=== PATIENT | male | born 1945 | race Caucasian/White ===

== ENCOUNTER → 2018-01-25 | Outpatient (CLI) | payer OTHER ==
[2018-01-25 08:20] LABS: BASOPHILS % (AUTO) 0.8 % (0.0-5.0); EOSINOPHILS % (AUTO) 1.9 % (0.0-8.0); LYMPHOCYTES % (AUTO) 26.4 % (21.0-51.0); MEAN CORPUSCULAR HEMOGLOBIN 30.7 pg (27.0-33.0); MEAN CORPUSCULAR VOLUME 90.5 fL (79-99); MONOCYTES % (AUTO) 8.2 % (3.0-13.0); NEUTROPHILS % (AUTO) 62.7 % (40.0-77.0); PLATELET COUNT (AUTO) 235 K/uL (130-400); RED BLOOD CELL COUNT(AUTO) 4.97 MIL/uL (4.50-6.20); RED CELL DISTRIBUTION WIDTH 12.5 % (11.0-15.5); WHITE BLOOD COUNT (AUTO) 5.4 K/uL (4.8-10.8)
[2018-01-25 08:30] LABS: HEMOGLOBIN A1C 7.6 % (4.0-6.0)
[2018-01-25 08:42] LABS: ALBUMIN 3.8 g/dL (3.5-5.0); BILIRUBIN,TOTAL 0.7 mg/dL (0.2-1.0); CREATININE 1.2 mg/dL (0.5-1.5); POTASSIUM 4.4 mmol/L (3.5-5.1); T4 (THYROXINE) 6.8 mcg/dL (4.7-13.3); THYROID STIMULATING HORMONE 4.03 uIU/mL (0.36-3.74); TOTAL PROTEIN, SERUM 7.1 g/dL (6.0-8.3)
[2018-01-25 08:53] LABS: B-TYPE NATRIURETIC PEPTIDE 22 pg/mL (0-100)
== END | disposition home or self-care (01) ==
LOC: RAH 07:08
PROVIDERS: ATTEND Internal Medicine Cardiovascular Disease
DX: N28.1 Cyst of kidney, acquired (principal); R97.20 Elevated prostate specific antigen [PSA]; R79.1 Abnormal coagulation profile
CPT/HCPCS: 36415; 76770; 80053; 80061; 82382; 83036; 83880; 84153; 84154; 84436; 84439; 84443; 84479; 84481; 84585; 85025; 93975

== ENCOUNTER 2018-08-03 10:15 | Observation (INO) | payer OTHER ==
[2018-08-03] VITALS (16 sets, daily range): BP systolic 67–161; BP diastolic 34–85
[~2018-08-03] VITALS: Ht 182.9 cm; Wt 100.7 kg
[2018-08-03 10:15] LABS: BASOPHILS % (AUTO) 0.7 % (0.0-5.0); EOSINOPHILS % (AUTO) 2.2 % (0.0-8.0); HEMATOCRIT 44.7 % (42-54); LYMPHOCYTES % (AUTO) 12.9 % (21.0-51.0); MEAN CORPUSCULAR HEMOGLOBIN 30.5 pg (27.0-33.0); MEAN CORPUSCULAR VOLUME 92.4 fL (79-99); MONOCYTES % (AUTO) 11.1 % (3.0-13.0); NEUTROPHILS % (AUTO) 73.1 % (40.0-77.0); NUCLEATED RED BLOOD CELLS 0.1 % (0.0-0.19); PLATELET COUNT (AUTO) 199 K/uL (130-400); RED BLOOD CELL COUNT(AUTO) 4.84 MIL/uL (4.50-6.20); RED CELL DISTRIBUTION WIDTH 13.3 % (11.0-15.5); WHITE BLOOD COUNT (AUTO) 9.8 K/uL (4.8-10.8)
[~2018-08-03 10:15] MED LIST: IOHEXOL-350 75 ML VIAL IV ONE
[2018-08-03 10:25] LABS: POTASSIUM 5.3 mmol/L (3.5-5.1)
[2018-08-03] MEDS ORDERED: IOHEXOL-350 75 ML VIAL IV ONE (10:36)
[2018-08-03] MEDS ORDERED: KETOROLAC TROMETHAMINE 15MG/ML ONE (11:04)
[2018-08-03 11:13] LABS: ERYTHROCYTE SEDIMENTATION RATE 6 MM/HR (0-20)
[2018-08-03] MEDS ORDERED: DEXAMETHASONE SOD PHOSPHATE 10MG/ML 1ML VIAL ONE (12:01)
[2018-08-03] MEDS ORDERED: MIDAZOLAM HCL 1 MG/ML 2ML VIAL ONE (12:01)
[2018-08-03] MEDS ORDERED: LIDOCAINE PF 2% 5ML ABBOJECT ONE (12:01)
[2018-08-03] MEDS ORDERED: ONDANSETRON HCL 4 MG/2 ML VIAL ONE (12:01)
[2018-08-03] MEDS ORDERED: PROPOFOL 10 MG/ML 20ML VIAL IV ONE ×2 (12:01→17:46)
[2018-08-03] MEDS ORDERED: FENTANYL CITRATE PF 50 MCG/1 ML 2ML VIAL ONE ×2 (12:02→18:56)
[2018-08-03] MEDS ORDERED: GLYCOPYRROLATE 1 MG/5 ML SYRINGE ONE (12:04)
[2018-08-03] MEDS ORDERED: ROCURONIUM 10MG/1ML SYR 10 MG/ML ML ONE (12:04)
[2018-08-03] MEDS ORDERED: SODIUM CHLORIDE 0.9% 1000ML 1,000 ML IV SCH (12:45)
[2018-08-03] MEDS ORDERED: KETOROLAC TROMETHAMINE 30MG/ML IV PRN (12:45)
[2018-08-03] MEDS: SODIUM CHLORIDE 0.9% 1000ML 1,000 ML IV SCH ×2 (14:17→20:09)
[2018-08-03 14:27] LABS: INR 0.94 (0.85-1.15); PARTIAL THROMBOPLASTIN TIME 27.8 SEC (26.3-35.5); PROTHROMBIN TIME 9.9 SEC (9.6-11.6)
[2018-08-03] MEDS: CEFTRIAXONE SODIUM 1 GM IVP SCH ×2 (16:15→18:35)
[2018-08-03] MEDS: INSULIN R PO SS1/2 SQ SCH ×2 (16:30→21:00)
[2018-08-03] MEDS ORDERED: LOSA25TA16 PO (16:57)
[2018-08-03] MEDS ORDERED: ASPI-1026 PO (16:57)
[2018-08-03] MEDS ORDERED: DOXA1TAB PO (16:57)
[2018-08-03] MEDS: LABETALOL HCL 5 MG/ML 20ML VIAL IV PRN ×2 (17:00→20:09)
[2018-08-03] MEDS ORDERED: IOHEXOL-350 50ML VIAL IV ONE (17:54)
[2018-08-03] MEDS ORDERED: METOCLOPRAMIDE 10 MG/2 ML VIAL ONE (17:56)
[2018-08-03] MEDS ORDERED: EPHEDRINE SULFATE 50 MG/ML AMPULE ONE (18:36)
[2018-08-03] MEDS ORDERED: OPIUM/BELLADONNA ALKALOIDS 1 EACH SUPP.RECT RC ONE (19:18)
[2018-08-03] MEDS ORDERED: MEPERIDINE-PF 25 MG/ML SYG ONE (19:28)
[2018-08-03] MEDS ORDERED: PROMETHAZINE HCL 25 MG/ML 1ML AMPULE IM ONE (19:29)
[2018-08-03] MEDS ORDERED: FAMOTIDINE/PF 20 MG/2 ML VIAL IV SCH (21:00)
[2018-08-03] MEDS ORDERED: HYDROCODONE/ACETAMINOPHEN 5/325 MG TAB ONE (21:02)
[2018-08-03] MEDS ORDERED: PHENAZOPYRIDINE HCL 200 MG TABLET ONE (21:11)
[2018-08-03] MEDS ORDERED: HYDROCODONE/ACETAMINOPHEN 5/325 MG TAB PO PRN ×2 (21:15)
[2018-08-03] MEDS ORDERED: OPIUM/BELLADONNA ALKALOIDS 1 EACH SUPP.RECT RC PRN (21:15)
[2018-08-03] MEDS ORDERED: MAGNESIUM HYDROXIDE 30 ML/UDCUP PO PRN (21:15)
[2018-08-03] MEDS ORDERED: ONDANSETRON HCL 4 MG/2 ML VIAL IVP PRN (21:15)
[2018-08-03] MEDS ORDERED: ZOLPIDEM TARTRATE 5 MG TAB PO PRN (21:15)
[2018-08-03] MEDS ORDERED: DOXA4TAB2 PO (22:30)
[2018-08-03] MEDS ORDERED: LOSA100T20 PO (22:30)
[2018-08-04] VITALS: BP 130/74
[2018-08-04 04:00] VITALS: BP 138/75
[2018-08-04] MEDS: INSULIN R PO SS1/2 SQ SCH (06:43)
[2018-08-04 07:39] VITALS: BP 139/76
[2018-08-04] MEDS ORDERED: PANTOPRAZOLE SODIUM 40 MG TABLET.DR PO SCH (09:00)
[2018-08-04] MEDS ORDERED: TAMSULOSIN HCL 0.4 MG CAP.ER.24H PO SCH (09:00)
[2018-08-04] MEDS ORDERED: CEFTRIAXONE SODIUM 1 GM IVP SCH (09:00)
[2018-08-04] MEDS ORDERED: DOCUSATE SODIUM 100 MG CAP PO SCH (09:00)
[2018-08-04] MEDS ORDERED: PHENAZOPYRIDINE HCL 200 MG TABLET PO SCH (09:00)
[2018-08-05] MEDS ORDERED: ENOXAPARIN SODIUM 40 MG/0.4 ML SYRINGE SQ SCH (09:00)
== END 2018-08-04 08:20 | disposition home or self-care (01) ==
LOC: EDH 10:15 → EDHIP 12:20 → 4AH 13:16
PROVIDERS: ADMIT Hospitalist; ATTEND Hospitalist
DX: N13.2 Hydronephrosis with renal and ureteral calculous obstruction (principal); I10 Essential (primary) hypertension; E11.9 Type 2 diabetes mellitus without complications; G89.29 Other chronic pain; N28.1 Cyst of kidney, acquired; N40.0 Benign prostatic hyperplasia without lower urinary tract symptoms; Z90.49 Acquired absence of other specified parts of digestive tract; Z91.14 Patient's other noncompliance with medication regimen; Z88.5 Allergy status to narcotic agent; E66.9 Obesity, unspecified; Z79.01 Long term (current) use of anticoagulants
CPT/HCPCS: 36415; 52332; 74178; 74420; 80051; 82565; 82948; 84153; 84154; 84520; 85025; 85610; 85651; 85730; 96374; 96375; 99285; A4218; A4344; A4358; A4930; C1758 ×2; C1769 ×2; C2617; G0378 ×20; J0696; J1100; J1885 ×2; J2001; J2175; J2250; J2405; J2550; J2704 ×2; J2765; J3010 ×2; J3490 ×3; J7030 ×2; Q9967 ×2

== ENCOUNTER 2018-08-09 10:19 | Day surgery (SDC) | payer OTHER ==
[~2018-08-09] VITALS: Ht 188 cm; Wt 100.7 kg
[2018-08-09] VITALS (11 sets, daily range): BP systolic 83–123; BP diastolic 42–77
[~2018-08-09 10:19] MED LIST changes: +ASPI-1026 PO; +DOXA4TAB2 PO; -IOHEXOL-350 75 ML VIAL IV ONE; +LOSA100T20 PO
[2018-08-09] MEDS ORDERED: BUPIVACAINE/EPI/PF 0.5% 30ML VIAL IJ ONE (10:25)
[2018-08-09] MEDS ORDERED: LIDOCAINE PF 2% 5ML ABBOJECT ONE (10:39)
[2018-08-09] MEDS ORDERED: PROPOFOL 10 MG/ML 20ML VIAL IV ONE (10:39)
[2018-08-09] MEDS ORDERED: MIDAZOLAM HCL 1 MG/ML 2ML VIAL ONE (10:39)
[2018-08-09] MEDS ORDERED: FENTANYL CITRATE PF 50 MCG/1 ML 2ML VIAL ONE (10:39)
[2018-08-09] MEDS ORDERED: ONDANSETRON HCL 4 MG/2 ML VIAL ONE (10:39)
[2018-08-09 10:48] LABS: BASOPHILS % (AUTO) 0.5 % (0.0-5.0); HEMATOCRIT 42.2 % (42-54); LYMPHOCYTES % (AUTO) 7.9 % (21.0-51.0); MEAN CORPUSCULAR HEMOGLOBIN 30.5 pg (27.0-33.0); MEAN CORPUSCULAR HGB CONC 33.2 g/dL (32.0-36.0); MEAN CORPUSCULAR VOLUME 91.8 fL (79-99); MONOCYTES % (AUTO) 9.9 % (3.0-13.0); NEUTROPHILS % (AUTO) 79.7 % (40.0-77.0); PLATELET COUNT (AUTO) 245 K/uL (130-400); RED CELL DISTRIBUTION WIDTH 13.1 % (11.0-15.5); WHITE BLOOD COUNT (AUTO) 12.7 K/uL (4.8-10.8)
[2018-08-09 10:50] LABS: CREATININE 1.6 mg/dL (0.5-1.5)
[2018-08-09] MEDS ORDERED: SODIUM CHLORIDE 0.9% 1000ML 1,000 ML IV ONE (11:08)
[2018-08-09] MEDS ORDERED: OXYB5TAB10 PO (11:16)
[2018-08-09] MEDS ORDERED: SOLI5 PO (11:19)
[2018-08-09] MEDS ORDERED: AMOX875T2 PO (11:19)
[2018-08-09] MEDS ORDERED: ACET325C5 PO (11:21)
[2018-08-09] MEDS ORDERED: IPRATROPIUM/ALBUTEROL SULFATE 3 ML SOLUTION IH ONE ×2 (11:27→11:33)
[2018-08-09 11:50] LABS: BAND NEUTROPHILS % (MANUAL) 1 % (0-2); EOSINOPHILS % (MANUAL) 2 % (1-6); LYMPHOCYTES % (MANUAL) 5 % (22-44); MAN.DIFF COMMENT-IMPRESSION MANUAL DIFFERENTIAL; MONOCYTES % (MANUAL) 8 % (2-9); PLATELET MORPHOLOGY COMMENT ADEQUATE; REACTIVE LYMPHOCYTES 4 % (0-0); SEGMENTED NEUTROPHILS % 80 % (40-70)
[2018-08-09] MEDS ORDERED: TRAM50TA4 PO (13:08)
== END 2018-08-09 13:00 | disposition home or self-care (01) ==
LOC: DAH 10:19
PROVIDERS: ATTEND Surgery
DX: K61.1 Rectal abscess (principal); I10 Essential (primary) hypertension; E11.9 Type 2 diabetes mellitus without complications; F15.90 Other stimulant use, unspecified, uncomplicated; E66.9 Obesity, unspecified; Z68.28 Body mass index [BMI] 28.0-28.9, adult; Z90.49 Acquired absence of other specified parts of digestive tract; Z88.5 Allergy status to narcotic agent; Z79.01 Long term (current) use of anticoagulants; Z79.899 Other long term (current) drug therapy; Z82.49 Family history of ischemic heart disease and other diseases of the circulatory system; Z82.5 Family history of asthma and other chronic lower respiratory diseases
CPT/HCPCS: 36415; 46040; 80048; 82948; 85025; 87070; 87076; 87077; 87186; 87205; 93005; 94640 ×2; J2001; J2250; J2405; J2704; J3010; J3490; J7030

== ENCOUNTER 2018-09-08 05:53 | Day surgery (SDC) | payer OTHER ==
[~2018-09-08] VITALS: Ht 186.7 cm; Wt 101.4 kg
[2018-09-08] VITALS (13 sets, daily range): BP systolic 92–139; BP diastolic 44–78
[~2018-09-08 05:53] MED LIST changes: -ASPI-1026 PO; +TAMS0.4C32 PO
[2018-09-08] MEDS ORDERED: SODIUM CHLORIDE 0.9% 1000ML 1,000 ML IV ONE (05:59)
[2018-09-08] MEDS ORDERED: CEFTRIAXONE SODIUM 1 GM ONE (06:00)
[2018-09-08 06:18] LABS: BASOPHILS % (AUTO) 1.1 % (0.0-5.0); EOSINOPHILS % (AUTO) 2.9 % (0.0-8.0); HEMATOCRIT 42.6 % (42-54); LYMPHOCYTES % (AUTO) 26.3 % (21.0-51.0); MEAN CORPUSCULAR HEMOGLOBIN 30.9 pg (27.0-33.0); MEAN CORPUSCULAR HGB CONC 33.5 g/dL (32.0-36.0); MEAN CORPUSCULAR VOLUME 92.2 fL (79-99); MONOCYTES % (AUTO) 10.6 % (3.0-13.0); NEUTROPHILS % (AUTO) 59.1 % (40.0-77.0); NUCLEATED RED BLOOD CELLS 0.1 % (0.0-0.19); PLATELET COUNT (AUTO) 162 K/uL (130-400); RED BLOOD CELL COUNT(AUTO) 4.61 MIL/uL (4.50-6.20); RED CELL DISTRIBUTION WIDTH 13.2 % (11.0-15.5); WHITE BLOOD COUNT (AUTO) 5.1 K/uL (4.8-10.8)
[2018-09-08 06:26] LABS: CREATININE 1.3 mg/dL (0.5-1.5); POTASSIUM 4.4 mmol/L (3.5-5.1)
[2018-09-08 06:33] LABS: ALBUMIN 3.6 g/dL (3.5-5.0); BILIRUBIN,TOTAL 0.7 mg/dL (0.2-1.0); HEMOGLOBIN A1C 7.1 % (4.0-6.0); TOTAL PROTEIN, SERUM 6.8 g/dL (6.0-8.3)
[2018-09-08] MEDS ORDERED: DEXAMETHASONE SOD PHOSPHATE 10MG/ML 1ML VIAL ONE (06:54)
[2018-09-08] MEDS ORDERED: LIDOCAINE PF 2% 5ML ABBOJECT ONE (06:54)
[2018-09-08] MEDS ORDERED: MIDAZOLAM HCL 1 MG/ML 2ML VIAL ONE ×2 (06:54→08:03)
[2018-09-08] MEDS ORDERED: PROPOFOL 10 MG/ML 20ML VIAL IV ONE ×2 (06:55→08:52)
[2018-09-08] MEDS ORDERED: GLYCOPYRROLATE 1 MG/5 ML SYRINGE ONE (06:55)
[2018-09-08] MEDS ORDERED: ONDANSETRON HCL 4 MG/2 ML VIAL ONE (06:55)
[2018-09-08] MEDS ORDERED: NEOSTIGMINE 5MG/5ML SYR IV ONE (06:56)
[2018-09-08] MEDS ORDERED: FENTANYL CITRATE PF 50 MCG/1 ML 2ML VIAL ONE ×3 (06:56→09:50)
[2018-09-08] MEDS ORDERED: ROCURONIUM BROMIDE 10MG/1ML 5ML VL ONE (07:08)
[2018-09-08] MEDS ORDERED: EPHEDRINE SULFATE 50 MG/ML AMPULE ONE (07:12)
[2018-09-08] MEDS ORDERED: IOHEXOL-350 50ML VIAL IV ONE (07:44)
[2018-09-08] MEDS ORDERED: CEFTRIAXONE SODIUM 1 GM IVP ONE (08:00)
[2018-09-08] MEDS ORDERED: SUB TO ALBUTEROL 2.5MG/3ML NEBULES PER P&T IH ONE (08:27)
[2018-09-08] MEDS ORDERED: OPIUM/BELLADONNA ALKALOIDS 1 EACH SUPP.RECT RC ONE (09:06)
[2018-09-08] MEDS ORDERED: IPRATROPIUM/ALBUTEROL SULFATE 3 ML SOLUTION IH ONE ×2 (09:27→10:05)
[2018-09-08] MEDS ORDERED: PHENAZOPYRIDINE HCL 200 MG TABLET ONE (09:58)
== END 2018-09-08 11:05 | disposition home or self-care (01) ==
LOC: DAH 05:53
PROVIDERS: ATTEND Urology
DX: N20.1 Calculus of ureter (principal); I12.9 Hypertensive chronic kidney disease with stage 1 through stage 4 chronic kidney disease, or unspecified chronic kidney disease; E11.22 Type 2 diabetes mellitus with diabetic chronic kidney disease; N18.9 Chronic kidney disease, unspecified; N40.0 Benign prostatic hyperplasia without lower urinary tract symptoms; Z79.84 Long term (current) use of oral hypoglycemic drugs; Z79.899 Other long term (current) drug therapy
CPT/HCPCS: 36415; 52332; 52352; 71045; 74420; 80053; 80061; 83036; 85025; 88300; 93005; 94640 ×2; A4218; A4344; A4358; A4450; A4510; A4600; A6204; C1758; C1769 ×2; C2617; J0696; J1100; J2001; J2250 ×2; J2405; J2704 ×2; J2710; J3010 ×3; J3490 ×3; J7030 ×2; Q9967

== ENCOUNTER 2020-09-08 08:21 | Day surgery (SDC) | payer OTHER ==
[2020-09-08] VITALS (10 sets, daily range): BP systolic 108–134; BP diastolic 55–77
[~2020-09-08] VITALS: Ht 182.9 cm; Wt 102.5 kg
[~2020-09-08 08:21] MED LIST changes: -LOSA100T20 PO; +LOSA100T58 PO
[2020-09-08] MEDS ORDERED: LACTATED RINGERS 1000ML 1,000 ML IV ONE (08:50)
[2020-09-08] MEDS ORDERED: CEFAZOLIN SODIUM 1 GM VIAL ONE (08:50)
[2020-09-08] MEDS ORDERED: AEC81 PO (09:21)
[2020-09-08 09:23] LABS: BASOPHILS % (AUTO) 0.5 % (0.0-5.0); EOSINOPHILS % (AUTO) 1.1 % (0.0-8.0); LYMPHOCYTES % (AUTO) 20.3 % (21.0-51.0); MEAN CORPUSCULAR HEMOGLOBIN 31.1 pg (27.0-33.0); MEAN CORPUSCULAR HGB CONC 33.2 g/dL (32.0-36.0); MEAN CORPUSCULAR VOLUME 93.6 fL (79-99); MONOCYTES % (AUTO) 8.9 % (3.0-13.0); PLATELET COUNT (AUTO) 206 K/uL (130-400); RED CELL DISTRIBUTION WIDTH 12.5 % (11.0-15.5); WHITE BLOOD COUNT (AUTO) 5.5 K/uL (4.8-10.8)
[2020-09-08] MEDS ORDERED: ROSU20TA31 PO (09:23)
[2020-09-08] MEDS ORDERED: SULF1TAB42 PO (09:23)
[2020-09-08] MEDS ORDERED: VITAMIN C PO (09:24)
[2020-09-08] MEDS ORDERED: ZINC PO (09:24)
[2020-09-08 09:33] LABS: ALBUMIN 4.1 g/dL (3.5-5.0); BILIRUBIN,TOTAL 0.9 mg/dL (0.2-1.0); CREATININE 1.3 mg/dL (0.5-1.5); POTASSIUM 4.8 mmol/L (3.5-5.1); TOTAL PROTEIN, SERUM 7.1 g/dL (6.0-8.3)
[2020-09-08] MEDS ORDERED: MIDAZOLAM HCL 1 MG/ML 2ML VIAL ONE ×2 (09:59→11:06)
[2020-09-08] MEDS ORDERED: FENTANYL CITRATE PF 50 MCG/1 ML 2ML VIAL ONE ×2 (11:07)
[2020-09-08] MEDS ORDERED: PROPOFOL 10 MG/ML 20ML VIAL IV ONE ×2 (11:24→13:16)
[2020-09-08] MEDS ORDERED: LIDOCAINE HCL 1% 20 ML VIAL ONE (12:41)
[2020-09-08] MEDS ORDERED: BUPIVACAINE/PF 0.5% 30ML VIAL ONE (12:41)
[2020-09-08] MEDS ORDERED: LIDOCAINE 1%-EPI 1:100,000 20 ML VIAL IJ ONE ×2 (13:02→13:04)
== END 2020-09-08 14:15 | disposition home or self-care (01) ==
LOC: DAH 08:21
PROVIDERS: ATTEND Student in an Organized Health Care Education/Training Program
DX: L72.3 Sebaceous cyst (principal); I45.10 Unspecified right bundle-branch block; I10 Essential (primary) hypertension; E11.9 Type 2 diabetes mellitus without complications; Z79.82 Long term (current) use of aspirin; Z87.442 Personal history of urinary calculi; Z86.19 Personal history of other infectious and parasitic diseases; Z98.890 Other specified postprocedural states; Z79.899 Other long term (current) drug therapy
CPT/HCPCS: 11406; 36415; 80053; 85025; 87070; 87076; 87077; 87186; 87205; 93005; A4221; A4222; A4223; A4452; A4606; A4663; J0690; J2250 ×2; J2704 ×2; J3010; J3490 ×2; J7120

== ENCOUNTER 2021-07-17 06:07 | Day surgery (SDC) | payer OTHER ==
[2021-07-16 11:26] VITALS: BP 178/86
[2021-07-17] VITALS (13 sets, daily range): BP systolic 106–140; BP diastolic 57–81
[~2021-07-17] VITALS: Ht 182.9 cm; Wt 101.9 kg
[~2021-07-17 06:07] MED LIST changes: +AEC81 PO; +AMOX-429 PO; +ICOS1CAP PO; +ROSU20TA31 PO; +SEMA1PEN3 SQ; -TAMS0.4C32 PO; +VITAMIN D PO; +ZINC PO
[2021-07-17] MEDS ORDERED: 0.9%NACL 1000ML 1,000 ML IV ONE (06:40)
[2021-07-17] MEDS ORDERED: CEFTRIAXONE 1G VIAL ONE (06:40)
[2021-07-17] MEDS ORDERED: SUCCINYLCHOLINE CHLORIDE 20 MG/ML 10 ML VIAL ONE (06:47)
[2021-07-17] MEDS ORDERED: LIDOCAINE PF 100MG/5ML (2%) SYRINGE 5ML ONE (06:47)
[2021-07-17] MEDS ORDERED: ONDANSETRON 4MG INJ ONE (06:48)
[2021-07-17] MEDS ORDERED: DEXAMETHASONE SOD PHOSPHATE 10MG/ML 1ML VIAL ONE (06:48)
[2021-07-17] MEDS ORDERED: GLYCOPYRROLATE 1 MG/5 ML SYRINGE ONE (06:48)
[2021-07-17] MEDS ORDERED: NEOSTIGMINE 5MG/5ML SYR IV ONE (06:48)
[2021-07-17] MEDS ORDERED: PROPOFOL 10 MG/ML 20ML VIAL IV ONE (06:48)
[2021-07-17] MEDS ORDERED: MIDAZOLAM HCL 1 MG/ML 2ML VIAL ONE ×2 (06:48→06:49)
[2021-07-17] MEDS ORDERED: FENTANYL CITRATE PF 50 MCG/1 ML 2ML VIAL ONE (06:48)
[2021-07-17] MEDS ORDERED: ROCURONIUM 10MG/1ML SYR 10 MG/ML ML ONE (06:48)
[2021-07-17] MEDS ORDERED: CEFTRIAXONE 1G VIAL IVP ONE (08:00)
[2021-07-17] MEDS ORDERED: LIDOCAINE HCL 2% PF 20 ML JEL DISP.SYRIN MM ONE ×2 (08:05→08:09)
[2021-07-17] MEDS ORDERED: SUGAMMADEX SODIUM 200 MG/2 ML VIAL IV ONE (08:23)
== END 2021-07-17 09:52 | disposition home or self-care (01) ==
LOC: DAH 06:07
PROVIDERS: ATTEND Urology
DX: R97.20 Elevated prostate specific antigen [PSA] (principal); Z20.822 Contact with and (suspected) exposure to COVID-19; K62.0 Anal polyp; N40.1 Benign prostatic hyperplasia with lower urinary tract symptoms; N41.9 Inflammatory disease of prostate, unspecified; R35.1 Nocturia; L02.215 Cutaneous abscess of perineum; I10 Essential (primary) hypertension; E11.9 Type 2 diabetes mellitus without complications; Z79.01 Long term (current) use of anticoagulants; Z79.899 Other long term (current) drug therapy; Z79.82 Long term (current) use of aspirin
CPT/HCPCS: 55700; 76872; 82948 ×2; 87635; 88304; 88305; 93005; A4215 ×2; A4221; A4222; A4223; A4663; A4930; A6260; C9803; J0330; J0696; J1100; J2001; J2250 ×2; J2405; J2704; J2710; J3010; J3490; J7030

== ENCOUNTER → 2021-08-20 | Outpatient (CLI) | payer OTHER ==
[~2021-08-20] MED LIST changes: -AEC81 PO; -ICOS1CAP PO
== END | disposition home or self-care (01) ==
LOC: OIH 10:01
PROVIDERS: ATTEND Internal Medicine Cardiovascular Disease
DX: Z13.6 Encounter for screening for cardiovascular disorders (principal)
CPT/HCPCS: 75571

== ENCOUNTER → 2021-08-24 | Outpatient (CLI) | payer OTHER ==
[~2021-08-24] MED LIST changes: +REGADENOSON 0.4 MG/5 ML PF SYG IVP SCH
== END | disposition home or self-care (01) ==
LOC: SHCH 07:26
PROVIDERS: ATTEND Internal Medicine Cardiovascular Disease
DX: I10 Essential (primary) hypertension (principal)
CPT/HCPCS: 78452; 93017; 96374; A9500 ×2; J2785

== ENCOUNTER → 2022-03-05 | Outpatient (CLI) | payer OTHER ==
[~2022-03-05] VITALS: Ht 182.9 cm; Wt 102.3 kg
[~2022-03-05] MED LIST changes: +ASPI-1443 PO; +CLON0.1T PO; +DOXA8TAB81 PO; +ESCI10TA PO; +LIDOCAINE/PRILOCAINE CREAM 5GM TUBE TP ONE; -REGADENOSON 0.4 MG/5 ML PF SYG IVP SCH; +TAMS-1 PO
[2022-03-05 14:18] VITALS: BP 136/74
== END | disposition home or self-care (01) ==
LOC: DAH 10:00 → EDSTATUS 15:00
PROVIDERS: ATTEND Urology
DX: Z01.818 Encounter for other preprocedural examination (principal); N20.1 Calculus of ureter; I25.2 Old myocardial infarction; Z79.01 Long term (current) use of anticoagulants
CPT/HCPCS: 87635; 93005; A6260; C9803; J3490

== ENCOUNTER 2022-07-29 06:33 | Day surgery (SDC) | payer OTHER ==
[2022-07-28 16:43] VITALS: BP 141/77
[2022-07-29] VITALS (13 sets, daily range): BP systolic 75–148; BP diastolic 69–83
[~2022-07-29] VITALS: Ht 175.3 cm; Wt 102.5 kg
[~2022-07-29 06:33] MED LIST changes: -AMOX-429 PO; +CEFAZOLIN SODIUM 1 GM VIAL IVP SCH; -DOXA4TAB2 PO; -LIDOCAINE/PRILOCAINE CREAM 5GM TUBE TP ONE; -LOSA100T58 PO; -SEMA1PEN3 SQ; -ZINC PO
[2022-07-29] MEDS ORDERED: 0.9%NACL 1000ML 1,000 ML IV ONE (06:45)
[2022-07-29] MEDS ORDERED: LOSA50TA64 PO (06:58)
[2022-07-29] MEDS ORDERED: ASCO-360 PO (06:58)
[2022-07-29] MEDS ORDERED: AMLO-258 PO (06:58)
[2022-07-29] MEDS ORDERED: vitamin d PO (06:58)
[2022-07-29] MEDS ORDERED: vitamin b12 PO (06:58)
[2022-07-29] MEDS ORDERED: ALFU10TA9 PO (06:58)
[2022-07-29] MEDS ORDERED: PANT40TA PO (06:58)
[2022-07-29] MEDS ORDERED: LIDOCAINE/PRILOCAINE CREAM 5GM TUBE TP SCH (07:00)
[2022-07-29 07:15] LABS: EOSINOPHILS % (AUTO) 2.3 % (0.0-8.0); HEMATOCRIT 41.3 % (42-54); LYMPHOCYTES % (AUTO) 22.1 % (21.0-51.0); MEAN CORPUSCULAR HEMOGLOBIN 30.6 pg (27.0-33.0); MEAN CORPUSCULAR HGB CONC 33.2 g/dL (32.0-36.0); MEAN CORPUSCULAR VOLUME 92.2 fL (79-99); MONOCYTES % (AUTO) 9.8 % (3.0-13.0); NEUTROPHILS % (AUTO) 64.4 % (40.0-77.0); PLATELET COUNT (AUTO) 171 K/uL (130-400); RED BLOOD CELL COUNT(AUTO) 4.48 MIL/uL (4.50-6.20); RED CELL DISTRIBUTION WIDTH 12.2 % (11.0-15.5); WHITE BLOOD COUNT (AUTO) 4.8 K/uL (4.8-10.8)
[2022-07-29 07:24] LABS: ALBUMIN 3.8 g/dL (3.5-5.0); POTASSIUM 4.5 mmol/L (3.5-5.1)
[2022-07-29] MEDS ORDERED: MIDAZOLAM HCL 1 MG/ML 2ML VIAL ONE ×2 (07:25→07:38)
[2022-07-29] MEDS ORDERED: LIDOCAINE HCL MDV 0.5% 50ML VIAL IJ ONE (07:37)
[2022-07-29] MEDS ORDERED: FENTANYL CITRATE PF 50 MCG/1 ML 2ML VIAL ONE ×2 (07:38→08:36)
[2022-07-29] MEDS ORDERED: PROPOFOL 10 MG/ML 20ML VIAL IV ONE (07:40)
[2022-07-29] MEDS ORDERED: BUPIVACAINE/PF 0.5% 30ML VIAL ONE (08:03)
[2022-07-29] MEDS ORDERED: CEFAZOLIN SODIUM 2 GM VIAL IV ONE (08:30)
[2022-07-29] MEDS ORDERED: ONDANSETRON 4MG INJ ONE (08:33)
[2022-07-29] MEDS ORDERED: DiphenhydrAMINE HCL 50 MG/ML VIAL ONE (08:45)
== END 2022-07-29 10:10 | disposition home or self-care (01) ==
LOC: DAH 06:33
PROVIDERS: ATTEND Orthopaedic Surgery
DX: M65.342 Trigger finger, left ring finger (principal); I10 Essential (primary) hypertension; E11.9 Type 2 diabetes mellitus without complications; I45.10 Unspecified right bundle-branch block; K21.9 Gastro-esophageal reflux disease without esophagitis; Z82.49 Family history of ischemic heart disease and other diseases of the circulatory system; Z79.82 Long term (current) use of aspirin; Z90.49 Acquired absence of other specified parts of digestive tract; Z98.890 Other specified postprocedural states; Z90.89 Acquired absence of other organs; Z79.899 Other long term (current) drug therapy; Z79.01 Long term (current) use of anticoagulants
CPT/HCPCS: 87426; 93005; 26055; 82040; 80048; 85025; 82948 ×2; 84134; 86140; 36415; A4663; J0690 ×2; J1200; J3010 ×2; J7030; J2250 ×2; J2704; J2405; J3490 ×3; A6445; A6223; A4649; A4930 ×2; A5120; A4215; A4223; A4222; A4221

== ENCOUNTER → 2023-01-03 | Outpatient (CLI) | payer OTHER ==
[~2023-01-03] MED LIST changes: +ALFU10TA9 PO; +AMLO-258 PO; +ASCO-360 PO; -CEFAZOLIN SODIUM 1 GM VIAL IVP SCH; +LOSA50TA64 PO; +PANT40TA PO; -TAMS-1 PO; -VITAMIN D PO; +vitamin b12 PO; +vitamin d PO
== END | disposition home or self-care (01) ==
LOC: RAH 14:08
PROVIDERS: ATTEND Internal Medicine
DX: N20.2 Calculus of kidney with calculus of ureter (principal); N28.1 Cyst of kidney, acquired; N40.0 Benign prostatic hyperplasia without lower urinary tract symptoms; N32.89 Other specified disorders of bladder; K76.89 Other specified diseases of liver; K44.9 Diaphragmatic hernia without obstruction or gangrene; K57.90 Diverticulosis of intestine, part unspecified, without perforation or abscess without bleeding; M47.815 Spondylosis without myelopathy or radiculopathy, thoracolumbar region
CPT/HCPCS: 74176

== ENCOUNTER 2023-04-27 06:03 | Day surgery (SDC) | payer OTHER ==
[2023-04-26 16:32] VITALS: BP 138/68; PULSE 69; RESP 13
[~2023-04-27] VITALS: Ht 182.9 cm; Wt 101.1 kg
[2023-04-27] VITALS (13 sets, daily range): BP systolic 102–144; BP diastolic 57–76; PULSE 56–69; RESP 15–16
[~2023-04-27 06:03] MED LIST changes: -ROSU20TA31 PO; +ROSU20TA73 PO
[2023-04-27 06:45] LABS: BASOPHILS % (AUTO) 0.7 % (0.0-5.0); EOSINOPHILS % (AUTO) 1.8 % (0.0-8.0); HEMATOCRIT 41.7 % (42-54); LYMPHOCYTES % (AUTO) 22.2 % (21.0-51.0); MEAN CORPUSCULAR HEMOGLOBIN 30.9 pg (27.0-33.0); MEAN CORPUSCULAR HGB CONC 32.1 g/dL (32.0-36.0); MEAN CORPUSCULAR VOLUME 96.1 fL (79-99); MONOCYTES % (AUTO) 8.6 % (3.0-13.0); NEUTROPHILS % (AUTO) 66.3 % (40.0-77.0); PLATELET COUNT (AUTO) 172 K/uL (130-400); RED BLOOD CELL COUNT(AUTO) 4.34 MIL/uL (4.50-6.20); RED CELL DISTRIBUTION WIDTH 12.5 % (11.0-15.5); WHITE BLOOD COUNT (AUTO) 5.5 K/uL (4.8-10.8)
[2023-04-27] MEDS ORDERED: CEFAZOLIN SODIUM 2 GM VIAL ONE (07:01)
[2023-04-27] MEDS ORDERED: MIDAZOLAM HCL 1 MG/ML 2ML VIAL ONE (07:08)
[2023-04-27] MEDS ORDERED: PROPOFOL 10 MG/ML 20ML VIAL IV ONE (07:09)
[2023-04-27] MEDS ORDERED: FENTANYL CITRATE PF 50 MCG/1 ML 2ML VIAL ONE ×2 (07:09)
[2023-04-27] MEDS ORDERED: LIDOCAINE HCL 1% MDV 50ML VIAL ONE (07:31)
[2023-04-27] MEDS ORDERED: BUPIVACAINE/PF 0.5% 50ML 5 MG/ML VIAL ONE (07:31)
[2023-04-27] MEDS ORDERED: ONDANSETRON 4MG INJ ONE (07:32)
[2023-04-27] MEDS ORDERED: DEXAMETHASONE SOD PHOSPHATE 10MG/ML 1ML VIAL ONE (07:32)
[2023-04-27] MEDS ORDERED: NEOMY SULF/BACITRAC ZN/POLY OINT 30GM TUBE TP ONE (08:49)
[2023-04-28 15:38] LABS: APPEARANCE,URINE CLEAR (CLEAR); BILIRUBIN,URINE NEGATIVE (NEGATIVE); COLOR,URINE YELLOW (YELLOW); GLUCOSE, URINE (UA) NEGATIVE (NEGATIVE); KETONES,URINE NEGATIVE (NEGATIVE); LEUKOCYTE ESTERASE ,URINE NEGATIVE Leu/uL (NEGATIVE); NITRATE,URINE NEGATIVE (NEGATIVE); OCCULT BLOOD,URINE NEGATIVE (NEGATIVE); PROTEIN,URINE 10 mg/dL (NEGATIVE); UROBILINOGEN,URINE 0.2 mg/dL (0.2-1.0)
[2023-04-28 15:41] LABS: MUCUS,URINE RARE LPF (None Seen); RBC,URINE 0-1 /HPF (0-1); SQUAMOUS EPITHELIAL CELL,UR RARE /HPF (0-2); WBC,URINE 0-1 /HPF (0-1)
== END 2023-04-27 10:15 | disposition home or self-care (01) ==
LOC: DAH 06:03
PROVIDERS: ATTEND Student in an Organized Health Care Education/Training Program
DX: L72.3 Sebaceous cyst (principal); Z20.822 Contact with and (suspected) exposure to COVID-19; I10 Essential (primary) hypertension; E11.9 Type 2 diabetes mellitus without complications; Z79.899 Other long term (current) drug therapy; Z98.890 Other specified postprocedural states; Z86.16 Personal history of COVID-19; Z79.82 Long term (current) use of aspirin; Z79.01 Long term (current) use of anticoagulants
CPT/HCPCS: 93005; 11406; 85025; 82948; 87426; 81001; 36415; 88304; A6260; A4663; J7030; A4452; J3010 ×2; J1100; J2250; J2704; J2405; J0690; A4930; A4215; A4223; A4222; A4221; J3490

== ENCOUNTER → 2023-05-09 | Outpatient (CLI) | payer OTHER ==
[~2023-05-09] MED LIST changes: -ASCO-360 PO; -CLON0.1T PO; -vitamin b12 PO; -vitamin d PO
== END | disposition home or self-care (01) ==
LOC: WHH 12:20
PROVIDERS: ATTEND Nurse Practitioner Family
DX: T81.31XA Disruption of external operation (surgical) wound, not elsewhere classified, initial encounter (principal); L72.3 Sebaceous cyst; E11.9 Type 2 diabetes mellitus without complications; I10 Essential (primary) hypertension; Z79.899 Other long term (current) drug therapy; Y83.8 Other surgical procedures as the cause of abnormal reaction of the patient, or of later complication, without mention of misadventure at the time of the procedure
CPT/HCPCS: 87070; 87077; 87186; G0463; A6212

== ENCOUNTER 2024-03-16 07:48 | Day surgery (SDC) | payer OTHER ==
[2024-03-14 14:56] LABS: APPEARANCE,URINE CLEAR (CLEAR); BILIRUBIN,URINE NEGATIVE (NEGATIVE); COLOR,URINE LIGHT-YELLOW (YELLOW); GLUCOSE, URINE (UA) NEGATIVE (NEGATIVE); KETONES,URINE NEGATIVE (NEGATIVE); LEUKOCYTE ESTERASE ,URINE NEGATIVE Leu/uL (NEGATIVE); NITRATE,URINE NEGATIVE (NEGATIVE); OCCULT BLOOD,URINE NEGATIVE (NEGATIVE); PH,URINE 6.5 (5.0-8.0); PROTEIN,URINE 10 mg/dL (NEGATIVE); UROBILINOGEN,URINE 0.2 mg/dL (0.2-1.0)
[2024-03-14 15:01] LABS: ADD UA MICROSCOPIC YES
[2024-03-14 15:08] LABS: RBC,URINE 0-1 /HPF (0-1); SQUAMOUS EPITHELIAL CELL,UR RARE /HPF (0-2); WBC,URINE 0-1 /HPF (0-1)
[2024-03-15 12:22] VITALS: BP 148/78; PULSE 60; RESP 18
[2024-03-16] VITALS (23 sets, daily range): BP systolic 113–161; BP diastolic 42–95; PULSE 52–70; RESP 10–18
[~2024-03-16] VITALS: Ht 182.9 cm; Wt 96.8 kg
[~2024-03-16 07:48] MED LIST changes: +CLON0.1T PO; +DOCU-116 PO; +GABA100C PO; +HYDR-4060 PO; +OXYB5TAB20 PO; +TAMS-1 PO
[2024-03-16] MEDS ORDERED: MEROPENEM 1 GM VIAL ONE (08:23)
[2024-03-16] MEDS: MEROPENEM 500 MG VIAL ONE (08:48)
[2024-03-16] MEDS: 0.9%NACL 1000ML 1,000 ML IV ONE (08:49)
[2024-03-16] MEDS ORDERED: MIDAZOLAM HCL 1 MG/ML 2ML VIAL ONE ×2 (08:57→09:59)
[2024-03-16] MEDS ORDERED: FENTANYL CITRATE PF 50 MCG/1 ML 2ML VIAL ONE ×3 (08:58→11:11)
[2024-03-16] MEDS ORDERED: PROPOFOL 10 MG/ML 20ML VIAL IV ONE (09:51)
[2024-03-16] MEDS ORDERED: ROCURONIUM BROMIDE 10MG/1ML 5ML VL ONE (09:51)
[2024-03-16] MEDS ORDERED: ONDANSETRON 4MG INJ ONE (10:42)
[2024-03-16] MEDS ORDERED: NEOSTIGMINE METHYLSULFATE 1MG/ML IV ONE (10:43)
[2024-03-16] MEDS ORDERED: GLYCOPYRROLATE 0.2 MG/ML 5 ML VIAL ONE (10:43)
[2024-03-16] MEDS ORDERED: KETOROLAC 30MG VIAL (30MG/ML) ONE (11:15)
[2024-03-16] MEDS: ONDANSETRON 4MG INJ ONE (12:00)
[2024-03-16] MEDS: MEPERIDINE-PF 25 MG/ML SYG ONE ×2 (12:00→12:01)
[2024-03-16] MEDS: HYDROMORPHONE 1 MG INJ ONE (12:07)
[2024-03-16] MEDS: ACETAMINOPHEN 1,000 MG/100 ML VIAL IV ONE (12:08)
[2024-03-16] MEDS: TRAMADOL HCL 50 MG TABLET ONE (12:55)
[2024-03-16] MEDS ORDERED: PHENAZOPYRIDINE HCL 200 MG TABLET PO ONE (13:00)
[2024-03-16] MEDS: ALPRAZOLAM 0.5 MG TABLET PO STA (14:26)
== END 2024-03-16 15:45 | disposition home or self-care (01) ==
LOC: DAH 07:48
PROVIDERS: ATTEND Urology
DX: N40.1 Benign prostatic hyperplasia with lower urinary tract symptoms (principal); N20.1 Calculus of ureter; R33.8 Other retention of urine; I10 Essential (primary) hypertension; E11.9 Type 2 diabetes mellitus without complications; K21.9 Gastro-esophageal reflux disease without esophagitis; F41.9 Anxiety disorder, unspecified; Z87.440 Personal history of urinary (tract) infections; Z86.19 Personal history of other infectious and parasitic diseases; Z79.899 Other long term (current) drug therapy
CPT/HCPCS: 87088; 81001; 93005; 52648; 88305; A4663; J7120; A4354; A4340; J3010 ×3; J1170; J7030; J3490 ×2; J2250 ×2; J2704; J2405 ×2; J1885; J2710; J2175 ×2; J2185; A4358; A4215; A4223; A4222; A4221; A4600; A4510

== ENCOUNTER 2024-10-19 06:34 | Day surgery (SDC) | payer OTHER ==
[2024-10-17 12:32] VITALS: BP 150/70; PULSE 74; RESP 18; TEMP 97.7
--- NOTE | 2024-10-17 14:20 | EKG ---
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
--- NOTE | 2024-10-17 17:20 | NUR ---
RE: EKG REPORTED EKG RESULTS TO DR PAZ, NO NEW ORDERS RECEIVED.
[2024-10-19] VITALS (15 sets, daily range): BP systolic 90–141; BP diastolic 45–88; PULSE 65–78; RESP 12–17; TEMP 97–97.5
[~2024-10-19] VITALS: Ht 182.9 cm; Wt 103.9 kg
[~2024-10-19 06:34] MED LIST changes: +ALFU10TA46 PO; -ALFU10TA9 PO; -ASPI-1443 PO; +ASPI-1521 PO; -CLON0.1T PO; -DOCU-116 PO; -DOXA8TAB81 PO; -ESCI10TA PO; -GABA100C PO; -HYDR-4060 PO; -OXYB5TAB20 PO; -PANT40TA PO; -ROSU20TA73 PO; +SIMV-43 PO; -TAMS-1 PO
[2024-10-19] MEDS: MEROPENEM 500 MG VIAL IVPB SCH (07:00)
[2024-10-19 07:13] LABS: BASOPHILS # (AUTO) 0.03 K/uL (0.00-0.20); BASOPHILS % (AUTO) 0.6 % (0.0-5.0); EOSINOPHILS # (AUTO) 0.11 K/uL (0.00-0.70); EOSINOPHILS % (AUTO) 2.3 % (0.0-8.0); HEMATOCRIT 43.7 % (42-54); IMMATURE GRANULOCYTE ABSOLUTE 0.01 K/uL (0-1); LYMPHOCYTES # (AUTO) 1.2 K/uL (1.0-4.8); LYMPHOCYTES % (AUTO) 23.9 % (21.0-51.0); MEAN CORPUSCULAR HEMOGLOBIN 31.4 pg (27.0-33.0); MEAN CORPUSCULAR VOLUME 95.4 fL (79-99); MONOCYTES # (AUTO) 0.5 K/uL (0.1-1.0); MONOCYTES % (AUTO) 11.2 % (3.0-13.0); NEUTROPHILS % (AUTO) 61.8 % (40.0-77.0); PLATELET COUNT (AUTO) 163 K/uL (130-400); RED BLOOD CELL COUNT(AUTO) 4.58 MIL/uL (4.50-6.20); RED CELL DISTRIBUTION WIDTH 12.2 % (11.0-15.5); WHITE BLOOD COUNT (AUTO) 4.8 K/uL (4.8-10.8)
[2024-10-19 07:27] LABS: CREATININE 1.2 mg/dL (0.5-1.3); POTASSIUM 4.7 mmol/L (3.5-5.1)
[2024-10-19] MEDS ORDERED: MIDAZOLAM HCL 1 MG/ML 2ML VIAL ONE (07:32)
[2024-10-19] MEDS ORDERED: FENTanyl CITRate PF 50 MCG/1 ML 2ML VIAL ONE ×2 (07:33→08:38)
[2024-10-19] MEDS: 0.9%NACL 1000ML 1,000 ML IV ONE (07:42)
[2024-10-19] MEDS: MEROPENEM 500 MG VIAL ONE (07:43)
[2024-10-19] MEDS ORDERED: ondanSETRON 4MG INJ ONE (07:50)
[2024-10-19] MEDS ORDERED: rocuRONium bROMide 10MG/1ML 5ML VL ONE (07:51)
[2024-10-19] MEDS ORDERED: proPOFol 10 MG/ML 20ML VIAL IV ONE (07:51)
[2024-10-19] MEDS ORDERED: IOHEXOL-350 50ML VIAL IV ONE (07:57)
[2024-10-19] MEDS ORDERED: ePHEDrine SULFate 50 MG/ML AMPULE ONE (08:15)
[2024-10-19] MEDS ORDERED: SUGAMMADEX SODIUM 200 MG/2 ML VIAL IV ONE (08:56)
[2024-10-19] MEDS ORDERED: MEPERIDINE-PF 25 MG/ML SYG ONE (09:04)
--- NOTE | 2024-10-19 09:53 | HMCIMG ---
UROGRAPHY RETROGRADE REASON: Uretroscopy Cysto. COMPARISON: None TECHNIQUE: Retrograde urogram was performed by referring physician. FINDINGS: Please see procedure report by referring physician. IMPRESSION: Findings as described above.
[2024-10-19] MEDS: PHENAZOpyridine HCL 200 MG TAB 200 MG TABLET ONE (10:37)
--- NOTE | 2024-10-19 10:46 | NUR ---
Full and complete Discharge Instructions given to Patient and Family both verbally and in writing.. All questions answered. Voiced understanding to Surgical precautions, Stent placement with string taped down not to be removed and Follow Up. PIV removed with catheter tip intact. Denies c/o pain or discomfort. D/C'd W/C to POV with Family to Home.
--- NOTE | 2024-10-19 12:28 | OP ---
DATE OF PROCEDURE: 10/19/2024 PREOPERATIVE DIAGNOSIS: Left ureteral calculus. POSTOPERATIVE DIAGNOSIS: Left ureteral calculus. PROCEDURES PERFORMED: Left ureteroscopy, laser lithotripsy ureteral calculus, stone basketing, insertion of ureteral stent (28 cm x 6-Cypriot Black Beauty stent with string attachment). ANESTHESIA: General endotracheal anesthesia. SURGEON: Lizbeth Chanel MD FINDINGS: Sequential strictures left ureter, visible stone at the left pelvic brim, midureteral, no hydronephrosis. PREOPERATIVE INDICATIONS: This is a 79-year-old male who has a known history of urolithiasis. The patient periodically passes stones. He had multiple studies revealing an 8 mm stone in his left mid ureter. The patient is largely asymptomatic from this, however, it is too large for him to pass. His most recent study was in 02/2024, again revealing approximately 8 mm stone in the left mid ureter near the pelvic brim. He presents today for removal of aforementioned finding. Additionally, the patient has a history of urosepsis and perineal abscesses. He is a diabetic. He has had multidrug resistant infections with E. coli. A recent urine culture is negative. He has a normal white count preoperatively with a creatinine of 1.2 and glomerular filtration rate of 62. His serum glucose was 148. Preoperatively, he received meropenem 500 mg intravenously. DESCRIPTION OF PROCEDURE: The patient was brought to the operating room and placed in the supine position. Following adequate general endotracheal anesthesia, he was sterilely draped and prepped in the dorsal lithotomy position. VIRGILIO hose and Venodyne stockings were placed on his lower extremities and all pressure points were padded. Consular Officer imaging revealed a faint density in the anatomic location corresponding to the finding of the stone on the CT scan. Cystoscopic scope was introduced into the bladder. The patient was noted to have an open bladder neck and rather small left ureteral orifice. With a little bit of difficulty, a 5-Cypriot open-ended catheter was inserted into the ureteral orifice and contrast was injected in retrograde fashion. The patient had a series of sequential strictures in the left ureter, probably secondary to multiple stone passings. There was a filling defect again corresponding to the area of the location of the midureteral stone. Following this, an angled tip Glidewire was passed through the lumen of the open-ended catheter and with some degree of difficulty was advanced into the region of the left renal pelvis. The patient was noted to have again multiple areas of narrowing and he did have some distal J-hooking of his ureter. Once the Glidewire was advanced into the renal pelvis, the open-ended catheter was coaxially advanced over this wire and this was then exchanged for a 0.038 mm guidewire. Distal dilation of the ureter was performed using a Rough And Ready dilator and then a semirigid scope was passed alongside the guidewire to the level of the stone. A 365 micron fiber was passed through the lumen of the ureteroscope and the stone was then lasered and fractured. Following this, a 0 tip nitinol basket was used to grasp residual stone and this was sent to pathology for review in a separately labeled specimen container. Copious irrigation was performed and then a 28 cm x 6-Cypriot Black Beauty stent was coaxially placed over the indwelling guidewire under direct fluoroscopic visualization. A string attachment was left on the distal end of the stent and this was brought out through the patient's urethra and affixed to his penile skin. The patient's bladder was drained after using Ellik irrigators to rinse out any stone, dust or fragments that were in the bladder. He tolerated the procedure well and there were no complications. He was transported to the recovery room in stable condition. He will be discharged home today with prescriptions for Macrobid, Tylenol No. 3, and Pyridium. He is to follow up in the office next for stent removal and all this was discussed with the patient's . TID: [id number] RECEIPT: [id number]
== END 2024-10-19 10:50 | disposition home or self-care (01) ==
LOC: DAH 06:34
PROVIDERS: ATTEND Urology
DX: N20.1 Calculus of ureter (principal); N13.5 Crossing vessel and stricture of ureter without hydronephrosis; I48.91 Unspecified atrial fibrillation; E11.9 Type 2 diabetes mellitus without complications; F41.9 Anxiety disorder, unspecified; K21.9 Gastro-esophageal reflux disease without esophagitis; I45.10 Unspecified right bundle-branch block; Z79.899 Other long term (current) drug therapy
CPT/HCPCS: 93005; 52356; 80048; 85025; 82360; 36415; 74420; A4663; C1876; C1769 ×2; A4354; C1758; J3010 ×2; J7030; J3490 ×2; J2250; J2704; J2405; J2175; J2185; Q9967; A4358; A4215; A4223; A4222; A4221; A4600; A4510